=== PATIENT | female | born 2000 | race Caucasian/White ===

== ENCOUNTER 2024-06-10 22:17 | Emergency (ER) | payer BC ==
[~2024-06-10] VITALS: Ht 165.1 cm; Wt 63.5 kg
[2024-06-10 22:20] VITALS: O2SAT 100
== END 2024-06-10 23:00 | disposition home or self-care (01) ==
LOC: ER 22:21
DX: R10.9 Unspecified abdominal pain (principal)
CPT/HCPCS: A4606; A4663